=== PATIENT | male | born 1960 | race Caucasian/White ===

== ENCOUNTER 2018-10-16 13:04 | Emergency (ER) | payer BC ==
[2018-10-16 13:18] VITALS: BP 128/80
[2018-10-16] MEDS ORDERED: Ketorolac 60 MG/2 ML SDV IM ONE (13:22)
[2018-10-16] MEDS ORDERED: Diazepam 5 MG Tab PO ONE (13:23)
--- NOTE | 2018-10-16 13:26 | EDM.PDOC ---
ED HPI GENERAL MEDICAL PROBLEM - General Chief Complaint: Back Pain or Injury Stated Complaint: BACK PAIN Time Seen by Provider: 10/16/18 13:23 Source of Information: Reports: Patient - History of Present Illness INITIAL COMMENTS - FREE TEXT/NARRATIVE: HISTORY AND PHYSICAL: History of present illness: []Patient presents with low back pain, he has a history of low back pain and longtime history of herniated disks, last epidural steroid injection was a year and a half prior denies any new injury or trauma however is developed acute on chronic low back pain him radiation to right inner thigh no footdrop saddle anesthesia bowel or urine symptoms Pain is worsened by movement No fever nausea vomiting chills sweats Review of systems: As per history of present illness and below otherwise all systems reviewed and negative. Past medical history: As per history of present illness and as reviewed below otherwise noncontributory. Surgical history: As per history of present illness and as reviewed below otherwise noncontributory. Social history: No reported history of drug or alcohol abuse. Family history: As per history of present illness and as reviewed below otherwise noncontributory. Physical exam: HEENT: Atraumatic, normocephalic, pupils reactive, negative for conjunctival pallor or scleral icterus, mucous membranes moist, throat clear, neck supple, nontender, trachea midline. Lungs: Clear to auscultation, breath sounds equal bilaterally, chest nontender. Heart: S1S2, regular, negative for clicks, rubs, or JVD. Abdomen: Soft, nondistended, nontender. Negative for masses or hepatosplenomegaly. Negative for costovertebral tenderness. Pelvis: Stable nontender. Genitourinary: Deferred. Rectal: Deferred. Extremities: Atraumatic, negative for cords or calf pain. Neurovascular unremarkable. Straight leg raising increases low back pain but does not increase radiculopathy Neuro: Awake, alert, oriented. Cranial nerves II through XII unremarkable. Cerebellum unremarkable. Motor and sensory unremarkable throughout. Exam nonfocal. Diagnostics: [Clinical ] Therapeutics: [Valium 5 mg by mouth Toradol 60 IM] Toradol Flexeril Impression: [Acute on chronic low back pain Paraspinous muscle spasm ] Definitive disposition and diagnosis as appropriate pending reevaluation and review of above. Lower Back Pain Score (Numeric/FACES): 8 - Related Data Allergies Allergy/AdvReac Type Severity Reaction Status Date / Time Penicillins Allergy Other Verified 10/16/18 13:08 Home Meds: Home Meds . [No Known Home Meds] 01/30/16 [History] Past Medical History - Past Health History Medical/Surgical History: Denies Medical/Surgical History - Infectious Disease History Infectious Disease History: Reports: None Social & Family History - Family History Family Medical History: Noncontributory - Tobacco Use Smoking Status *Q: Never Smoker - Caffeine Use Caffeine Use: Reports: None - Living Situation & Occupation Living situation: Reports: Occupation: Employed ED ROS GENERAL - Review of Systems Review Of Systems: See Below ED EXAM, GENERAL - Physical Exam Exam: See Below Course - Vital Signs Last Recorded V/S: Last Vital Signs Temp 96.9 F 10/16/18 13:08 Pulse 68 10/16/18 13:08 Resp 16 10/16/18 13:08 BP 128/80 10/16/18 13:08 Pulse Ox 99 10/16/18 13:08 - Orders/Labs/Meds Orders: Active Orders 24 hr Category Date Time Status Ketorolac [Toradol] Med 10/16/18 13:22 Once 60 mg IM ONETIME ONE diazePAM [Valium] Med 10/16/18 13:23 Once 5 mg PO ONETIME ONE Departure - Departure Time of Disposition: 13:25 Disposition: Home, Self-Care 01 Condition: Good Clinical Impression: Lumbar paraspinal muscle spasm - Discharge Information Referrals: PCP,None [Primary Care Provider] - Additional Instructions: The following information is given to patients seen in the emergency department who are being discharged to home. This information is to outline your options for follow-up care. We provide all patients seen in our emergency department with a follow-up referral. The need for follow-up, as well as the timing and circumstances, are variable depending upon the specifics of your emergency department visit. If you don't have a primary care physician on staff, we will provide you with a referral. We always advise you to contact your personal physician following an emergency department visit to inform them of the circumstance of the visit and for follow-up with them and/or the need for any referrals to a consulting specialist. The emergency department will also refer you to a specialist when appropriate. This referral assures that you have the opportunity for follow-up care with a specialist. All of these measure are taken in an effort to provide you with optimal care, which includes your follow-up. Under all circumstances we always encourage you to contact your private physician who remains a resource for coordinating your care. When calling for follow-up care, please make the office aware that this follow-up is from your recent emergency room visit. If for any reason you are refused follow-up, please contact the [facility] emergency department at and asked to speak to the emergency department charge nurse. - My Orders Last 24 Hours: My Active Orders 10/16/18 13:22 Ketorolac [Toradol] 60 mg IM ONETIME ONE 10/16/18 13:23 diazePAM [Valium] 5 mg PO ONETIME ONE - Assessment/Plan Last 24 Hours: My Active Orders 10/16/18 13:22 Ketorolac [Toradol] 60 mg IM ONETIME ONE 10/16/18 13:23 diazePAM [Valium] 5 mg PO ONETIME ONE
--- NOTE | 2018-10-16 14:50 | CR ---
INDICATION: Pain TECHNIQUE: 3-view lumbar spine. COMPARISON: none FINDINGS: Disc space narrowing and moderate spurring L2-3. Disc space narrowing L3-4 with minimal spurring. No compression fracture or pars defect. No spondylolisthesis. IMPRESSION: No fracture. Degenerative disc disease L2-3 and L3-4. Dictated by Anthony Goodman MD @ Oct 16 2018 2:47PM Signed by Dr. Anthony Goodman @ Oct 16 2018 2:48PM
== END 2018-10-16 14:45 | disposition home or self-care (01) ==
LOC: MW.ED 13:04
DX: M62.830 Muscle spasm of back (principal); G89.29 Other chronic pain; Z88.0 Allergy status to penicillin
CPT/HCPCS: 72100; 96372; 99283; A9270; J1885

== ENCOUNTER 2019-07-14 18:37 | Emergency (ER) | payer BC ==
--- NOTE | 2019-07-14 19:20 | EDM.PDOC ---
ED HPI GENERAL MEDICAL PROBLEM - General Chief Complaint: ENT Problem Stated Complaint: RIGHT EAR ACHE Time Seen by Provider: 07/14/19 19:15 Source of Information: Reports: Patient History Limitations: Reports: No Limitations - History of Present Illness INITIAL COMMENTS - FREE TEXT/NARRATIVE: HISTORY AND PHYSICAL: History of present illness: [] Review of systems: As per history of present illness and below otherwise all systems reviewed and negative. Past medical history: As per history of present illness and as reviewed below otherwise noncontributory. Surgical history: As per history of present illness and as reviewed below otherwise noncontributory. Social history: No reported history of drug or alcohol abuse. Family history: As per history of present illness and as reviewed below otherwise noncontributory. Physical exam: General: Patient sitting comfortably in no acute distress and nontoxic appearing HEENT: Right ear canal with cerumen impaction. After partial clearance of cerumen, the TM is visualized without erythema, bulging, or perforation. The ear canal has some edema and otorrhea. Atraumatic, normocephalic, pupils reactive, negative for conjunctival pallor or scleral icterus, mucous membranes moist, throat clear, neck supple, nontender, trachea midline. No meningeal signs. Lungs: Clear to auscultation, breath sounds equal bilaterally, chest nontender. Heart: S1S2, regular, negative for clicks, rubs, or overt murmur. Abdomen: Soft, nondistended, nontender. Negative for masses or hepatosplenomegaly. Negative for costovertebral tenderness. No rigidity, rebound , guarding. Pelvis: Stable nontender. Genitourinary: Deferred. Rectal: Deferred. Extremities: Atraumatic, negative for cords or calf pain. Neurovascular unremarkable. Neuro: Awake, alert, oriented. Cranial nerves II through XII unremarkable. Cerebellum unremarkable. Motor and sensory unremarkable throughout. Exam nonfocal. Notes: Diagnostics: none Therapeutics: Prescriptions: Impression: Cerumen impaction, otitis externa Plan: Use drops as instructed You may use OTC cerumex for the remaining ear wax Follow up with primary care provider Return to ED as needed as discussed Definitive disposition and diagnosis as appropriate pending reevaluation and review of above. R ear Pain Score (Numeric/FACES): 6 - Related Data Allergies Allergy/AdvReac Type Severity Reaction Status Date / Time Penicillins Allergy Other Verified 10/16/18 13:08 Home Meds: Home Meds Ciprofloxacin/Dexamethasone [Ciprodex Otic Susp] 4 drop OT BID 7 Days #1 bottle 07/14/19 [Rx] Past Medical History - Past Health History Medical/Surgical History: Denies Medical/Surgical History - Infectious Disease History Infectious Disease History: Reports: None Social & Family History - Family History Family Medical History: Noncontributory - Caffeine Use Caffeine Use: Reports: Coffee - Living Situation & Occupation Living situation: Reports: Occupation: Employed ED ROS ENT - Review of Systems Review Of Systems: Comprehensive ROS is negative, except as noted in HPI. ED EXAM, ENT - Physical Exam Exam: See Below (see dictation) ED ENT PROCEDURES - Additional/Other Procedure(s) Other (Free Text) Procedure(s): Right ear cerumen impaction removal done with warm soapy water and syringe. This was not successful. A currette was used to remove part of the cerumen. Procedure stopped due to patient discomfort. Course - Vital Signs Last Recorded V/S: Last Vital Signs Temp 98.2 F 07/14/19 18:50 Pulse 74 07/14/19 18:50 Resp 20 07/14/19 18:50 BP 135/95 H 07/14/19 18:50 Pulse Ox 98 07/14/19 18:50 Departure - Departure Time of Disposition: 19:15 Disposition: Home, Self-Care 01 Condition: Good Clinical Impression: Cerumen impaction, Otitis externa - Discharge Information Forms: ED Department Discharge Additional Instructions: The following information is given to patients seen in the emergency department who are being discharged to home. This information is to outline your options for follow-up care. We provide all patients seen in our emergency department with a follow-up referral. The need for follow-up, as well as the timing and circumstances, are variable depending upon the specifics of your emergency department visit. If you don't have a primary care physician on staff, we will provide you with a referral. We always advise you to contact your personal physician following an emergency department visit to inform them of the circumstance of the visit and for follow-up with them and/or the need for any referrals to a consulting specialist. The emergency department will also refer you to a specialist when appropriate. This referral assures that you have the opportunity for follow-up care with a specialist. All of these measure are taken in an effort to provide you with optimal care, which includes your follow-up. Under all circumstances we always encourage you to contact your private physician who remains a resource for coordinating your care. When calling for follow-up care, please make the office aware that this follow-up is from your recent emergency room visit. If for any reason you are refused follow-up, please contact the [facility] Emergency Department at and asked to speak to the emergency department charge nurse. [facility] [address] [place] [id number] [address] Use drops as instructed You may use OTC cerumex for the remaining ear wax Follow up with primary care provider Return to ED as needed as discussed Sepsis Event Note - Evaluation Sepsis Screening Result: No Definite Risk - Focused Exam Vital Signs: Vital Signs Temp Pulse Resp BP Pulse Ox 07/14/19 18:50 98.2 F 74 20 135/95 H 98 Date Exam was Performed: 07/14/19 Time Exam was Performed: 19:15
[2019-07-14 19:45] VITALS: BP 140/79; PULSE 76
== END 2019-07-14 19:40 | disposition home or self-care (01) ==
LOC: MW.ED 18:37
DX: H61.21 Impacted cerumen, right ear (principal); H60.90 Unspecified otitis externa, unspecified ear; Z88.0 Allergy status to penicillin
CPT/HCPCS: 69210; 99282